=== PATIENT | female | born 1975 | race African-American/Black ===

== ENCOUNTER 2016-07-09 02:07 | Emergency (ER) | payer SELFPAY ==
[~2016-07-09] VITALS: Ht 157.5 cm; Wt 65.0 kg
[~2016-07-09 02:07] MED LIST: LISI-360 PO
[2016-07-09 02:09] VITALS: BP 197/113; PULSE 96; RESP 18; TEMP 98.2; O2SAT 99
--- NOTE | 2016-07-09 02:34 | PD ---
HPI Chief Complaint: Injury Time Seen by Provider: 02:25 Travel History International Travel<30 days: No Contact w/Intl Traveler<30days: No Traveled to known affect area: No History of Present Illness HPI 40-year-old female presents for evaluation of left knee pain. Prior to arrival she says that she was running from a dog and she jumped over a railing and fell , landing on her left knee. Since then she's had pain, soft tissue swelling in the left knee, particularly in the lateral aspect. Pain is an aching pain is constant, worse with flexion and extension of the left knee. Denies any other injuries and she has no other complaints. PFSH Past Medical History Hx Anticoagulant Therapy: No Cardiovascular Problems: Yes (HTN) Chemotherapy: No Diabetes: No Diminished Hearing: No Hypertension: Yes Musculoskeletal: Yes (BACK PAIN) Respiratory: No Past Surgical History Hysterectomy: No Social History Alcohol Use: No Tobacco Use: No Substance Use: No Allergies-Medications (Allergen,Severity, Reaction): Coded Allergies: No Known Allergies (Unverified , 07/09/16) Reported Meds & Prescriptions Reported Meds & Active Scripts Active Lisinopril 10 mg (Lisinopril) 10 Mg Tab 1 Tab PO DAILY 30 Days Lisinopril 10 mg (Lisinopril) 10 Mg Tab 1 Tab PO DAILY Review of Systems Except as stated in HPI: all other systems reviewed are Neg Physical Exam Narrative GENERAL: Well-developed well-nourished female in no acute distress SKIN: Warm and dry. CARDIOVASCULAR: Regular rate and rhythm. No murmur appreciated. RESPIRATORY: No accessory muscle use. Clear to auscultation. Breath sounds equal bilaterally. Extremities: Left knee effusion is present. There is generalized tenderness to palpation to the left knee. There is pain with flexion and extension. Flexion is mildly limited secondary to pain and joint effusion. Distal sensation and pulses are preserved. Data Data Last Documented VS Vital Signs Date Time Temp Pulse Resp B/P Pulse Ox O2 Delivery O2 Flow Rate FiO2 07/09/16 02:09 98.2 96 18 197/113 99 Room Air Orders Knee, Complete (4vws) (07/09/16 ) Ice/Cold Pack (07/09/16 02:31) Ibuprofen (Motrin) (07/09/16 03:45) Splint Or Brace Apply/Monitor (07/09/16 03:46) Crutches (07/09/16 03:46) MDM Medical Decision Making Medical Screen Exam Complete: Yes Emergency Medical Condition: Yes Medical Record Reviewed: Yes Differential Diagnosis Bursitis, meniscus tear, ligamentous disruption, tibial plateau fracture, patellar fracture Narrative Course 40-year-old female presents with left knee pain and swelling after falling on her left knee prior to arrival. X-ray imaging will be obtained. X-ray imaging confirms a left knee effusion without fracture. Plan is to discharge the patient with knee immobilizer, crutches, recommended outpatient follow-up with primary care physician in one to 2 weeks, likely for MRI imaging if symptoms persist. Diagnosis Primary Impression: Effusion, left knee Additional Instructions: Ice pack several times a day 10-15 minutes at a time. Elevate. Crutches as needed. Take Tylenol or Motrin for discomfort. As discussed follow-up with primary care physician in one to 2 weeks. Return for any emergent medical conditions. Med/Other Pt SpecificInfo: Orthopedic Instructions Disposition: 01 DISCHARGE HOME Condition: Stable Eric Cristina Jul 09, 2016 02:33
[2016-07-09] MEDS ORDERED: IBUPROFEN 800 MG TAB PO ONE (03:45)
--- NOTE | 2016-07-09 03:45 | RADRPT ---
EXAM DATE/TIME: 07/09/2016 02:52 [facility] COMPARISON: No previous studies available for comparison. INDICATIONS : Left knee pain. MEDICAL HISTORY : None. SURGICAL HISTORY : None. ENCOUNTER: Initial ACUITY: 1 day PAIN SCORE: 8/10 LOCATION: Left knee. FINDINGS: No definite fractures, or dislocations are identified. No definite lytic or sclerotic lesion is seen . The joint spaces are well maintained. Moderate joint effusion is seen. CONCLUSION: Joint effusion. Megha Costello MD on July 09, 2016 at 3:43 Board Certified Radiologist. This report was verified electronically.
== END 2016-07-09 04:16 | disposition home or self-care (01) ==
LOC: NEPB 02:07
DX: M25.462 Effusion, left knee (principal); I10 Essential (primary) hypertension
CPT/HCPCS: 73564; 99283; E0113; L1830